=== PATIENT | female | born 1995 | race African-American/Black ===

== ENCOUNTER 2018-02-11 17:36 | Emergency (ER) | payer SELFPAY ==
[~2018-02-11] VITALS: Ht 157.5 cm; Wt 68.0 kg
[2018-02-11 18:19] VITALS: BP 129/76
== END 2018-02-11 21:45 | disposition left against medical advice (07) ==
LOC: ER 17:36
DX: M25.562 Pain in left knee (principal); Z53.21 Procedure and treatment not carried out due to patient leaving prior to being seen by health care provider